=== PATIENT | male | born 1960 | race Asian ===

== ENCOUNTER 2021-07-30 08:09 | Day surgery (SDC) | payer OTHER ==
[2021-07-29 12:38] VITALS: BMI 20.9
[2021-07-30] MEDS ORDERED: ROPIVACAINE HCL/PF 100 MG/20 ML VIAL ONE (08:46)
[2021-07-30] MEDS ORDERED: MIDAZOLAM HCL 2 MG/2 ML SINGLE DOSE VIAL ONE (08:46)
[2021-07-30] MEDS ORDERED: EPINEPHrine 1:1,000 1 MG/1 ML - 30ML VIAL (INJECTION) ONE (09:14)
[2021-07-30] MEDS ORDERED: PROPOFOL 20 ML ONE ×4 (09:36)
[2021-07-30] MEDS ORDERED: ONDANSETRON 4 MG/2 ML VIAL IVPUSH PRN (11:04)
[2021-07-30] MEDS ORDERED: oxyCODONE HCL 5 MG TABLET PO PRN ×2 (11:04)
[2021-07-30] MEDS ORDERED: ONDANSETRON 4 MG/2 ML VIAL ONE (11:42)
[2021-07-30 12:55] VITALS: PULSE 80; TEMP 98.2
[2021-07-30 15:03] VITALS: BP 117/80
== END 2021-07-30 15:15 | disposition home or self-care (01) ==
LOC: FASU 08:09
PROVIDERS: ATTEND Orthopaedic Surgery
PROC: 0PBB4ZZ Excision of Left Clavicle, Percutaneous Endoscopic Approach (ICD-10-PCS; 2021-07-30)
PROC: 0RBK4ZZ Excision of Left Shoulder Joint, Percutaneous Endoscopic Approach (ICD-10-PCS; 2021-07-30)
PROC: 0LQ24ZZ Repair Left Shoulder Tendon, Percutaneous Endoscopic Approach (ICD-10-PCS; principal; 2021-07-30 10:03)
PROC: 0RNK4ZZ Release Left Shoulder Joint, Percutaneous Endoscopic Approach (ICD-10-PCS; 2021-07-30 10:03)
DX: M75.102 Unspecified rotator cuff tear or rupture of left shoulder, not specified as traumatic (principal); M75.02 Adhesive capsulitis of left shoulder; M75.42 Impingement syndrome of left shoulder; M19.012 Primary osteoarthritis, left shoulder; S43.432A Superior glenoid labrum lesion of left shoulder, initial encounter; X58.XXXA Exposure to other specified factors, initial encounter; Y93.9 Activity, unspecified; Y92.9 Unspecified place or not applicable; M65.812 Other synovitis and tenosynovitis, left shoulder
CPT/HCPCS: 94760

== ENCOUNTER 2022-06-08 15:07 | Emergency (ER) | payer OTHER ==
[2022-06-08 15:12] VITALS: BP 144/88; PULSE 85; RESP 18; TEMP 98.1; BMI 20.9
[2022-06-08] MEDS ORDERED: KETOROLAC TROMETHAMINE 60 MG/2 ML VIAL IM ONE (16:57)
[2022-06-08] MEDS ORDERED: KETOROLAC TROMETHAMINE 30 MG/1 ML VIAL ONE (17:05)
== END 2022-06-08 17:17 | disposition home or self-care (01) ==
LOC: JERFT 15:07
PROC: 3E023GC Introduction of Other Therapeutic Substance into Muscle, Percutaneous Approach (ICD-10-PCS; principal; 2022-06-08)
DX: M25.561 Pain in right knee (principal)
CPT/HCPCS: 73562-TC-RT-FY; 99284-25